=== PATIENT | male | born 1955 | race Caucasian/White ===

== ENCOUNTER 2021-07-17 23:16 | Observation (INO) ==
[2021-07-18] MEDS ORDERED: Ondansetron 4 MG/2 ML VIAL IVP ONE (00:06)
[2021-07-18] MEDS ORDERED: *HR* FentaNYL (PF) 100 MCG/2 ML VIAL IVP ONE ×2 (00:06→02:36)
[2021-07-18 00:22] LABS: Basophils # 0.1 K/mcL (0.0-0.2); Basophils % 0.7 %; Eosinophils # 0.3 K/mcL (0.0-0.6); Eosinophils % 2.2 %; Hematocrit 44.2 % (37.5-50.1); Immature Granulocytes % 0.3 % (0-4); Lymphocytes # 2.2 K/mcL (0.6-4.6); Lymphocytes % 16.6 %; Mean Corpuscular HGB Conc 33.9 g/dL (31.6-35.5); Mean Corpuscular Hemoglobin 30.1 pg (28.0-33.3); Mean Corpuscular Volume 88.6 fL (83.0-100.0); Mean Platelet Volume 9.4 fL (9.4-12.4); Monocytes # 1.3 K/mcL (0.0-1.3); Monocytes % 9.7 %; Neutrophils # 9.2 K/mcL (1.6-8.9); Platelet Count 385 K/mcL (140-400); Red Blood Count 4.99 M/mcL (4.19-5.50); Segmented Neutrophils % 70.5 %
[2021-07-18 00:26] LABS: Bilirubin,Urine Negative (Negative); Blood,Urine Large (Negative); Clarity,Urine Slightly Cloudy (Clear); Color,Urine Pink (Yellow); Glucose,Urine (UA) Normal (Normal); Ketones,Urine Trace mg/dL (Negative); Leukocyte Esterase,Urine Negative (Negative); Nitrite,Urine Negative (Negative); PH,Urine 8.5 pH Units (5.0-8.0); Protein,Urine 30 mg/dL (Neg-Trace); Urobilinogen,Urine Normal (Normal)
[2021-07-18 00:34] LABS: Mucus,Urine Few per lpf (None-Few); RBC,Urine TNTC per hpf (0-3); Squamous Epithelial Cell,Urine Few per hpf (None-Few); WBC,Urine 30-50 per hpf (0-3)
[2021-07-18 00:37] LABS: Alanine Aminotransferase 25 Units/L (7-52); Albumin 4.6 g/dL (3.5-5.7); Albumin/Globulin Ratio 1.6 (1.1-2.2); Alkaline Phosphatase 62 Units/L (34-104); Aspartate Amino Transferase 29 Units/L (13-39); BUN/Creatinine Ratio 17 (6-26); Bilirubin,Direct 0.1 mg/dL (0.0-0.2); Bilirubin,Indirect 0.6 mg/dL (0.0-1.0); Bilirubin,Total 0.7 mg/dL (0.3-1.0); Blood Urea Nitrogen 23 mg/dL (8-23); Calcium 9.4 mg/dL (8.6-10.3); Carbon Dioxide 25 mEq/L (23-29); Chloride 103 mEq/L (98-107); Globulin 2.9 g/dL (2.4-3.5); Lipase 20 Units/L (11-82); Potassium 4.3 mEq/L (3.5-5.1); Sodium 138 mEq/L (136-145); Total Protein 7.5 g/dL (6.4-8.9); eGFR For African Americans > 60 (> 60); eGFR For Non-African Americans 52 (> 60)
[2021-07-18 01:00] LABS: Glucose 125 mg/dL (70-105)
[2021-07-18 01:01] LABS: Osmolality,Calculated 291 (280-300)
[2021-07-18] MEDS ORDERED: 0.9 % Sodium Chloride 1,000 ML IVC ONE (02:20)
[2021-07-18] MEDS ORDERED: cefTRIAXone 1,000 MG in 0.9 % Sodium Chloride Mini Bag 100 ML IVPB ONE (02:20)
[2021-07-18] MEDS ORDERED: CefTRIAXone 1,000 MG VIAL ONE (02:30)
[2021-07-18] MEDS ORDERED: *HR* FentaNYL (PF) 100 MCG/2 ML VIAL ONE (02:42)
[2021-07-18] MEDS ORDERED: Ondansetron 4 MG/2 ML VIAL IVP PRN (03:07)
[2021-07-18] MEDS ORDERED: Acetaminophen 325 MG TABLET PO PRN (03:07)
[2021-07-18] MEDS ORDERED: Naloxone 0.4 MG/ML INJ IVP PRN (03:07)
[2021-07-18 04:27] LABS: Chol/HDL Ratio 5.6 (0-4.9); Magnesium 2.1 mg/dL (1.6-2.6)
[2021-07-18 07:46] LABS: Estimated Average Glucose 134 mg/dl; Hemoglobin A1C 6.3 %
[2021-07-19] MEDS ORDERED: cefTRIAXone 2,000 MG in 0.9 % Sodium Chloride Mini Bag 100 ML IVPB SCH (02:30)
[2021-07-19 05:52] LABS: Hematocrit 45.8 % (37.5-50.1); Hemoglobin 15.6 g/dL (12.9-16.9); Mean Corpuscular HGB Conc 34.1 g/dL (31.6-35.5); Mean Corpuscular Hemoglobin 30.2 pg (28.0-33.3); Mean Corpuscular Volume 88.8 fL (83.0-100.0); Mean Platelet Volume 9.2 fL (9.4-12.4); Platelet Count 364 K/mcL (140-400); Red Blood Count 5.16 M/mcL (4.19-5.50); White Blood Count 11.2 K/mcL (4.3-11.1)
[2021-07-19 06:18] LABS: BUN/Creatinine Ratio 13 (6-26); Blood Urea Nitrogen 18 mg/dL (8-23); Calcium 9.4 mg/dL (8.6-10.3); Carbon Dioxide 25 mEq/L (23-29); Chloride 106 mEq/L (98-107); Glucose 107 mg/dL (70-105); Osmolality,Calculated 290 (280-300); Potassium 3.7 mEq/L (3.5-5.1); Sodium 139 mEq/L (136-145); eGFR For African Americans > 60 (> 60); eGFR For Non-African Americans 52 (> 60)
[2021-07-19] MEDS ORDERED: 0.9 % Sodium Chloride 500 ML IVC ONE (07:34)
[2021-07-19] MEDS: *HR* HYDROmorphone 2 MG TABLET PO PRN ×2 (10:53→15:21)
[2021-07-19] MEDS ORDERED: Isovue-300 50ML VIAL ONE (16:35)
[2021-07-19] MEDS ORDERED: *HR* FentaNYL (PF) 100 MCG/2 ML VIAL ONE (16:38)
[2021-07-19] MEDS ORDERED: *HR* Succinylcholine 200 MG/10 ML VIAL IVP ONE (16:39)
[2021-07-19] MEDS ORDERED: Lidocaine -MPF 2% 5 ML VIAL ONE (16:39)
[2021-07-19] MEDS ORDERED: *HR* Propofol 200 MG/20 ML VIAL IVP ONE (16:39)
[2021-07-19] MEDS ORDERED: Ondansetron 4 MG/2 ML VIAL ONE (16:39)
[2021-07-19] MEDS ORDERED: *HR* HYDROmorphone (PF) 1 MG/ML SYRINGE IVP PRN (17:05)
[2021-07-19] MEDS ORDERED: Famotidine 20 MG/2 ML VIAL IVP ONE (17:05)
[2021-07-19] MEDS ORDERED: Acetaminophen IV 1,000 MG/100 ML BAG IVPB ONE ×2 (17:05→17:21)
[2021-07-19] MEDS ORDERED: Pregabalin 75 MG CAPSULE PO ONE (17:05)
[2021-07-19] MEDS ORDERED: *HR* OxyCODONE Immed Rel 5 MG TABLET PO PRN (17:05)
[2021-07-19] MEDS ORDERED: *HR* HYDROmorphone 2 MG TABLET PO PRN ×2 (17:05→19:39)
[2021-07-19] MEDS ORDERED: *HR* Labetalol 20 MG/4 ML SYRINGE IVP PRN (17:05)
[2021-07-19] MEDS ORDERED: Famotidine 20 MG/2 ML VIAL ONE (17:21)
[2021-07-19] MEDS ORDERED: EPHEDrine 50 MG/ML VIAL ONE (17:43)
[2021-07-19] MEDS ORDERED: *HR* HYDROMORPHONE 2 MG/ML VIAL ONE (17:51)
[2021-07-19] MEDS ORDERED: Ketorolac 30 MG/ML VIAL ONE (18:01)
[2021-07-19] MEDS ORDERED: *HR* Belladonna Alkaloids/Opium 60 MG RECTAL SUPPOSITORY RC PRN (19:39)
[2021-07-19] MEDS ORDERED: Ondansetron 4 MG/2 ML VIAL IVP PRN (19:39)
[2021-07-19] MEDS ORDERED: Hyoscyamine SL 0.125 MG TAB.SUBL SL PRN (19:39)
[2021-07-19] MEDS ORDERED: Naloxone 0.4 MG/ML INJ IVP PRN (19:39)
[2021-07-19] MEDS ORDERED: Acetaminophen 325 MG TABLET PO PRN (19:39)
[2021-07-20 07:11] VITALS: BP 146/82; PULSE 62; TEMP 97.5; O2SAT 98
[2021-07-20 08:25] LABS: Basophils % 0.2 %; Eosinophils % 0.1 %; Hematocrit 43.2 % (37.5-50.1); Hemoglobin 14.8 g/dL (12.9-16.9); Immature Granulocytes % 0.5 % (0-4); Lymphocytes # 1.5 K/mcL (0.6-4.6); Lymphocytes % 8.9 %; Mean Corpuscular HGB Conc 34.3 g/dL (31.6-35.5); Mean Corpuscular Hemoglobin 30.2 pg (28.0-33.3); Mean Corpuscular Volume 88.2 fL (83.0-100.0); Mean Platelet Volume 9.4 fL (9.4-12.4); Monocytes # 1.9 K/mcL (0.0-1.3); Monocytes % 11.3 %; Platelet Count 353 K/mcL (140-400); White Blood Count 16.5 K/mcL (4.3-11.1)
[2021-07-20 08:44] LABS: BUN/Creatinine Ratio 19 (6-26); Blood Urea Nitrogen 22 mg/dL (8-23); Calcium 9.3 mg/dL (8.6-10.3); Carbon Dioxide 24 mEq/L (23-29); Chloride 104 mEq/L (98-107); Glucose 109 mg/dL (70-105); Osmolality,Calculated 288 (280-300); Potassium 3.8 mEq/L (3.5-5.1); Sodium 137 mEq/L (136-145); eGFR For African Americans > 60 (> 60); eGFR For Non-African Americans > 60 (> 60)
[2021-07-20] MEDS ORDERED: cefTRIAXone 2,000 MG in 0.9 % Sodium Chloride Mini Bag 100 ML IVPB SCH (09:00)
[2021-07-22 18:17] LABS: Calculi Mass 15 mg
== END 2021-07-20 11:57 | disposition home or self-care (01) ==
LOC: 3BNU 23:16 → EMEROOARM 23:16 → 3BNU 07-18 03:00
PROVIDERS: ADMIT Student in an Organized Health Care Education/Training Program; ATTEND Student in an Organized Health Care Education/Training Program